=== PATIENT | female | born 1990 | race American Indian/Alaskan Native ===

== ENCOUNTER 2021-11-24 10:51 | Emergency (ER) | payer BC ==
[2021-11-24 12:44] LABS: Basophils % (Auto) 0.6 % (0.0-1.8); Eosinophils % (Auto) 0.5 % (0.0-4.3); Hemoglobin 14.8 gm/dl (10.1-14.3); Lymphocytes # (Auto) 1.9 K/mm3 (1.2-5.4); Mean Corpuscular HGB Conc 35 % (30-34); Mean Corpuscular Volume 89 fl (79-97); Monocytes # (Auto) 0.5 K/mm3 (0.0-0.8); Monocytes % (Auto) 9.1 % (0.0-7.3); Platelet Count 282 K/mm3 (140-440); Red Blood Count 4.85 M/mm3 (3.65-5.03); Red Cell Distribution Width 13.8 % (13.2-15.2)
[2021-11-24 13:03] LABS: Alanine Aminotransferase 7 units/L (7-56); Albumin 4.6 g/dL (3.9-5); Blood Urea Nitrogen 9 mg/dL (7-17); Calcium 9.5 mg/dL (8.4-10.2); Hemolysis Index 7
[2021-11-24 13:47] LABS: BUN/Creatinine Ratio 13
--- NOTE | 2021-11-24 14:31 | XRay Report ---
CHEST 1 VIEW 11/24/2021 2:22 PM INDICATION / CLINICAL INFORMATION: chest pain. COMPARISON: None available. FINDINGS: SUPPORT DEVICES: None. HEART / MEDIASTINUM: No significant abnormality. LUNGS / PLEURA: No significant pulmonary abnormality. No significant pleural effusion. No pneumothora x. ADDITIONAL FINDINGS: No significant additional findings. IMPRESSION: 1. No acute abnormality of the chest. Signer Name: Patric Cruz MD Signed: 11/24/2021 2:27 PM Workstation Name: [email or web address]
--- NOTE | 2021-11-24 15:02 | Emergency Department Report ---
ED General Adult HPI - General Chief complaint: Chest Pain Stated complaint: CHEST PAIN PUI?: No Time Seen by Provider: 11/24/21 14:53 Source: patient Mode of arrival: Ambulatory Limitations: No Limitations - History of Present Illness Initial comments: Patient is a 31-year-old female that comes to the emergency room with substernal chest pain that is worse with movement. She states is better when she stands up. She denies shortness of breath. She denies fever or chills. She denies cough. She denies being COVID immunized.. Patient is ambulatory nontoxic [id number] on arrival to ER -: Gradual, days(s) Radiation: non-radiation Severity scale (0 -10): 6 Quality: aching Consistency: intermittent Improves with: immobilization, other Worsens with: movement Associated Symptoms: denies other symptoms (Standing) Treatments Prior to Arrival: none - Related Data Allergies Allergy/AdvReac Type Severity Reaction Status Date / Time No Known Allergies Allergy Unverified 11/24/21 11:25 ED Review of Systems ROS: Stated complaint: CHEST PAIN Other details as noted in HPI Comment: All other systems reviewed and negative ED Past Medical Hx - Past Medical History Previous Medical History?: No - Surgical History Past Surgical History?: No - Family History Family history: no significant - Social History Smoking Status: Never Smoker Substance Use Type: None ED Physical Exam - General Limitations: No Limitations General appearance: alert, in no apparent distress - Head Head exam: Present: atraumatic, normocephalic - Eye Eye exam: Present: normal appearance - ENT ENT exam: Present: mucous membranes moist - Neck Neck exam: Present: normal inspection - Respiratory Respiratory exam: Present: normal lung sounds bilaterally. Absent: respiratory distress - Cardiovascular Cardiovascular Exam: Present: regular rate, normal rhythm. Absent: systolic murmur, diastolic murmur, rubs, gallop - GI/Abdominal GI/Abdominal exam: Present: soft, normal bowel sounds - Extremities Exam Extremities exam: Present: normal inspection - Back Exam Back exam: Present: normal inspection - Neurological Exam Neurological exam: Present: alert, oriented X3 - Psychiatric Psychiatric exam: Present: normal affect, normal mood - Skin Skin exam: Present: warm, dry, intact, normal color. Absent: rash ED Course Vital Signs 11/24/21 11/24/21 11:18 17:18 Temperature 98.8 F 97.9 F Pulse Rate 60 62 Respiratory 20 12 Rate Blood Pressure 127/83 114/80 [Left] O2 Sat by Pulse 100 98 Oximetry ED Medical Decision Making - Lab Data Result diagrams: 11/24/21 12:17 11/24/21 12:17 - EKG Data -: EKG Interpreted by Me EKG shows normal: sinus rhythm Rate: normal - EKG Data When compared to previous EKG there are: no significant change Interpretation: no acute changes - Radiology Data Radiology results: report reviewed, image reviewed No acute process - Medical Decision Making Vital Signs 11/24/21 11:18 Temperature 98.8 F Pulse Rate 60 Respiratory 20 Rate Blood Pressure 127/83 [Left] O2 Sat by Pulse 100 Oximetry Labs 11/24/21 11/24/21 11/24/21 12:17 12:17 12:17 WBC 5.8 RBC 4.85 Hgb 14.8 H Hct 43.0 H MCV 89 MCH 31 MCHC 35 H RDW 13.8 Plt Count 282 Lymph % (Auto) 33.0 Knott % (Auto) 9.1 H Eos % (Auto) 0.5 Baso % (Auto) 0.6 Lymph # (Auto) 1.9 Knott # (Auto) 0.5 Eos # (Auto) 0.0 Baso # (Auto) 0.0 Seg Neutrophils % 56.8 Seg Neutrophils # 3.3 Sodium 138 Potassium 3.9 Chloride 102.4 Carbon Dioxide 22 Anion Gap 18 BUN 9 Creatinine 0.7 Estimated GFR > 60 BUN/Creatinine Ratio 13 Glucose 92 Calcium 9.5 Total Bilirubin 0.30 AST 13 ALT 7 Alkaline Phosphatase 59 Troponin T < 0.010 Total Protein 7.2 Albumin 4.6 Albumin/Globulin Ratio 1.8 X-ray noted. Twelve-lead normal Labs normal including troponin Musculoskeletal pain. Able to replicate with movement. Patient being discharged home with discharge plan of care including diet, activity medications and follow-up. She verbalizes understanding of plan of care - Differential Diagnosis URI versus musculoskeletal versus ACS Critical care attestation.: If time is entered above; I have spent that time in minutes in the direct care of this critically ill patient, excluding procedure time. ED Disposition Clinical Impression: Musculoskeletal chest pain Disposition: 01 HOME / SELF CARE / HOMELESS Is pt being admited?: No Does the pt Need Aspirin: No Condition: Stable Instructions: Nonspecific Chest Pain, Adult Additional Instructions: [id number] Motrin or Tylenol for pain Follow-up with PCP if pain persist. Referral below Diet activity as tolerated Referrals: JOE STAHL MD [Primary Care Provider] - 3-5 Days Forms: Work/School Release Form(ED) Time of Disposition: 15:08
[2021-11-24 17:19] VITALS: BP 114/80
--- NOTE | 2021-11-25 11:30 | Electrocardiograph Report ---
[facility] Test Date: 2021-11-24 Test Time: 11:31:15 Pat Name: JS TO Department: Room: Gender: F Body Builder: ANITA : 1990 Requested By: PAPITO RENE Order Number: [id number] Reading MD: Everett Boo Measurements Intervals [place] Rate: 56 P: 31 NC: 125 QRS: 49 QRSD: 88 T: 43 QT: 404 QTc: 392 Interpretive Statements Sinus rhythm No previous ECG available for comparison Electronically Signed On 11-25-2021 11:30:03 EDT by Everett Boo
== END 2021-11-24 17:19 | disposition home or self-care (01) ==
LOC: ED 10:51
DX: R07.9 Chest pain, unspecified (principal)
CPT/HCPCS: 36415; 71045; 80053; 84484; 85025; 93005; 99283